=== PATIENT | male | born 1975 | race Caucasian/White ===

== ENCOUNTER → 2022-01-22 | Outpatient (CLI) | payer BC | LOC: EDBD 07:51 → WCC 07:51 | DX: L97.312 Non-pressure chronic ulcer of right ankle with fat layer exposed (principal); M25.571 Pain in right ankle and joints of right foot; I10 Essential (primary) hypertension; R60.0 Localized edema; Z79.899 Other long term (current) drug therapy ==

== ENCOUNTER → 2022-01-29 | Outpatient (CLI) | payer BC | LOC: WCC 07:08 | DX: S81.801A Unspecified open wound, right lower leg, initial encounter (principal); I10 Essential (primary) hypertension; R60.0 Localized edema; X58.XXXA Exposure to other specified factors, initial encounter; Y92.096 Garden or yard of other non-institutional residence as the place of occurrence of the external cause ==

== ENCOUNTER → 2022-02-12 | Outpatient (CLI) | payer BC | LOC: WCC 07:13 | DX: S81.801A Unspecified open wound, right lower leg, initial encounter (principal); I10 Essential (primary) hypertension; R60.0 Localized edema; X58.XXXA Exposure to other specified factors, initial encounter ==

== ENCOUNTER → 2022-02-26 | Outpatient (CLI) | payer BC | LOC: WCC 07:27 | DX: S81.801A Unspecified open wound, right lower leg, initial encounter (principal); I10 Essential (primary) hypertension; R60.0 Localized edema; X58.XXXA Exposure to other specified factors, initial encounter ==

== ENCOUNTER → 2022-03-09 | Outpatient (CLI) | payer BC | LOC: WCC 07:21 | DX: L97.312 Non-pressure chronic ulcer of right ankle with fat layer exposed (principal); M25.571 Pain in right ankle and joints of right foot; I10 Essential (primary) hypertension; R60.0 Localized edema | CPT/HCPCS: G0463 ==

== ENCOUNTER → 2022-03-09 | Outpatient (CLI) | payer BC | LOC: HEART 5 09:37 | DX: S91.001A Unspecified open wound, right ankle, initial encounter (principal); I87.2 Venous insufficiency (chronic) (peripheral) | CPT/HCPCS: 93970 ==